=== PATIENT | female | born 1990 | race Caucasian/White ===

== ENCOUNTER 2017-10-06 00:05 | Emergency (ER) | payer OTHER ==
[~2017-10-06] VITALS: Ht 157.5 cm; Wt 69.9 kg
[2017-10-06 00:11] VITALS: Ht 157.5 cm; Wt 69.9 kg
[2017-10-06 00:48] LABS: BASOPHIL % 0.6 % (0-2); PLATELET COUNT 211 x10^3mcL (130-400)
[2017-10-06 00:56] LABS: CALCIUM 8.9 mg/dL (8.5-10.1); CARBON DIOXIDE 28.6 mmol/L (21-32); CHLORIDE SERUM 107 mmol/L (98-107); CREATININE SERUM 0.7 mg/dL (0.6-1.0); GFR1 > 60 mL/min; GLUCOSE SERUM 118 mg/dL (74-106); POTASSIUM SERUM 3.6 mmol/L (3.5-5.1); SODIUM SERUM 145 mmol/L (136-145)
[2017-10-06 01:00] LABS: ALBUMIN 3.6 g/dL (3.4-5.0); ALKALINE PHOSPHATASE 95 U/L (46-116); ALT/SGPT 43 U/L (14-59); AST/SGOT 97 U/L (15-37); BILIRUBIN TOTAL 0.56 mg/dL (0.20-1.00); LIPASE 288 IU/L (73-393); TOTAL PROTEIN, SERUM 7.2 g/dL (6.4-8.2)
[2017-10-06 02:16] VITALS: BP 127/75
== END 2017-10-06 02:16 | disposition home or self-care (01) ==
LOC: ED 00:05
PROVIDERS: Emergency Medicine
DX: K80.80 Other cholelithiasis without obstruction (principal)
CPT/HCPCS: C9113; J1885; J2405; Q0092

== ENCOUNTER 2017-10-09 15:24 | Emergency (ER) | payer OTHER ==
[~2017-10-09] VITALS: Ht 157.5 cm; Wt 70.3 kg
[2017-10-09 15:29] VITALS: BP 109/69; Ht 157.5 cm; Wt 70.3 kg
== END 2017-10-09 16:31 | disposition left against medical advice (07) ==
LOC: ED 15:24
DX: Z53.21 Procedure and treatment not carried out due to patient leaving prior to being seen by health care provider (principal)

== ENCOUNTER 2018-04-25 12:27 | Emergency (ER) | payer SELFPAY ==
[~2018-04-25] VITALS: Ht 154.9 cm; Wt 68.0 kg
[2018-04-25 12:38] VITALS: Ht 154.9 cm; Wt 68.0 kg
[2018-04-25 14:35] LABS: PLATELET COUNT 241 x10^3mcL (130-400); RED CELL DISTRIBUTION WIDTH 13.3 % (11.5-14.5)
[2018-04-25 14:38] LABS: BASOPHIL % 2.3 % (0-2)
[2018-04-25 14:47] LABS: CALCIUM 8.8 mg/dL (8.5-10.1); CARBON DIOXIDE 28.3 mmol/L (21-32); CHLORIDE SERUM 100 mmol/L (98-107); CREATININE SERUM 0.6 mg/dL (0.6-1.0); GFR1 > 60 mL/min; GLUCOSE SERUM 98 mg/dL (74-106); POTASSIUM SERUM 3.9 mmol/L (3.5-5.1); SODIUM SERUM 134 mmol/L (136-145)
[2018-04-25 14:52] LABS: ALBUMIN 3.6 g/dL (3.4-5.0); ALKALINE PHOSPHATASE 88 U/L (46-116); ALT/SGPT 19 U/L (14-59); AMYLASE 62 U/L (25-115); AST/SGOT 12 U/L (15-37); BILIRUBIN TOTAL 0.3 mg/dL (0.20-1.00); LIPASE 117 IU/L (73-393); TOTAL PROTEIN, SERUM 7.4 g/dL (6.4-8.2)
[2018-04-25 15:08] LABS: microscopic required? NO
[2018-04-25 15:15] LABS: urine erythrocyte NEGATIVE (NEGATIVE)
[2018-04-25 16:55] VITALS: BP 121/97
== END 2018-04-25 16:55 | disposition home or self-care (01) ==
LOC: ED 12:27
PROVIDERS: Specialist
DX: O99.611 Diseases of the digestive system complicating pregnancy, first trimester (principal); K80.50 Calculus of bile duct without cholangitis or cholecystitis without obstruction; Z3A.01 Less than 8 weeks gestation of pregnancy; F17.210 Nicotine dependence, cigarettes, uncomplicated
CPT/HCPCS: 36415